=== PATIENT | female | born 1975 | race Caucasian/White ===

== ENCOUNTER 2019-07-14 11:35 | Emergency (ER) | payer BC, OTHER ==
[~2019-07-14] VITALS: Ht 172.7 cm; Wt 86.2 kg
[2019-07-14] MEDS ORDERED: CLARITHROMYCIN500 MG PO (12:07)
[2019-07-14 12:49] LABS: URINE BILIRUBIN NEGATIVE (Negative); URINE BLOOD NEGATIVE (Negative); URINE CLARITY CLEAR; URINE COLOR YELLOW; URINE GLUCOSE-RANDOM* NEGATIVE (Negative); URINE KETONES 1+ (Negative); URINE NITRITE-REFLEX NEGATIVE (Negative); URINE PROTEIN (DIPSTICK) TRACE (Negative); URINE SPECIFIC GRAVITY 1.025 (1.005-1.035); URINE UROBILINOGEN 0.2 E.U./dl (0.2-1.0)
[2019-07-14 12:50] LABS: URINE LEUKOCYTES-REFLEX 1+ (Negative)
[2019-07-14 12:57] LABS: CASTS None Seen /LPF (None Seen); SQUAMOUS >10 Many /LPF (0-3)
[2019-07-14 12:58] LABS: CRYSTALS None Seen /LPF (None Seen); MUCUS 0-3 Light strn/LPF (None Seen); URINE RBC None Seen /HPF (0-2); URINE WBC-REFLEX 6-15 Few /HPF (0-5)
[2019-07-14 13:28] LABS: CALCIUM 8.2 mg/dL (8.5-10.1); CREATININE 0.8 mg/dL (0.6-1.0); POTASSIUM 3.5 mmol/L (3.5-5.1)
[2019-07-14 14:04] LABS: ABSOLUTE NEUTROPHILS 1.8 thou/uL (1.4-8.2); BASOPHILS 0.6 % (0.0-2.0); EOSINOPHILS 0.1 % (0.0-3.0); HEMATOCRIT 34.2 % (37.0-47.0); HEMOGLOBIN 11.6 gm/dL (12.0-15.0); LYMPHOCYTES 38.7 % (24.0-44.0); MCH 27.3 pg (26.0-34.0); MCV 80.3 fL (80.0-100.0); MONOCYTES 6.6 % (1.0-8.0); PLATELET COUNT 167 thou/uL (150-400); RBC 4.26 mil/uL (4.20-5.00); RDW 14.4 % (10.5-14.5); WBC 3.3 thou/uL (4.0-11.0)
[2019-07-14] MEDS ORDERED: PROAIR HFA8.5 GM INH (14:26)
[2019-07-14] MEDS ORDERED: LEVAQUIN 750 M750 MG PO (14:26)
[2019-07-14 15:03] VITALS: BP 105/59
== END 2019-07-14 15:03 | disposition home or self-care (01) ==
LOC: ER 11:35
PROVIDERS: Nurse Practitioner Family
DX: J18.9 Pneumonia, unspecified organism (principal); N39.0 Urinary tract infection, site not specified; Z20.828 Contact with and (suspected) exposure to other viral communicable diseases; Z98.51 Tubal ligation status